=== PATIENT | female | born 1985 | race Caucasian/White ===

== ENCOUNTER 2021-05-16 19:03 | Inpatient (IN) | payer BC ==
[2021-05-16] MEDS ORDERED: NALOXONE HCL 0.4 MG/ML VIAL IM PRN (22:41)
[2021-05-16] MEDS ORDERED: MAG HYDROX/AL HYDROX/SIMETH 30 ML UNIT-DOSE CUP PO PRN (22:41)
[2021-05-16] MEDS ORDERED: ACETAMINOPHEN 325 MG TABLET (FP) PO PRN (22:41)
[2021-05-16] MEDS ORDERED: NALOXONE (NARCAN) HCL 4 MG/0.1 ML SPRAY NS PRN (22:41)
[2021-05-16] MEDS ORDERED: guaiFENesin 200 MG/10 ML 10 ML UNIT-DOSE CUPS PO PRN (22:41)
[2021-05-16] MEDS ORDERED: MAGNESIUM HYDROX 2400MG/30ML ORAL SUSPENSION 30 ML CUP PO PRN (22:41)
[2021-05-16] MEDS ORDERED: ONDANSETRON *ODT* 4 MG TABLET SL PRN (22:41)
[2021-05-16] MEDS ORDERED: MAGNESIUM CITRATE 300 ML BOTTLE PO PRN (22:41)
[2021-05-16] MEDS ORDERED: P-EPHED 60MG/TRIPROLIDI 2.5MG TABLET PO PRN (22:41)
[2021-05-16] MEDS ORDERED: DICYCLOMINE HCL 10 MG CAPSULE PO PRN (22:41)
[2021-05-16] MEDS ORDERED: BISMUTH SUBSALICYLATE 524 MG/30 ML PO PRN (22:41)
[2021-05-16] MEDS ORDERED: MENTHOL/PHENOL 1 EACH UD MM PRN (22:41)
[2021-05-16] MEDS ORDERED: IBUPROFEN 400 MG TABLET (FP) PO PRN (22:41)
[2021-05-17 01:15] VITALS: BMI 30.4
[2021-05-17] MEDS ORDERED: diazePAM 5 MG TABLET PO PRN (08:30)
[2021-05-17] MEDS ORDERED: cloNIDine HCL 0.1 MG TABLET PO PRN (10:07)
[2021-05-17] MEDS ORDERED: methaDONE HCL 10 MG TABLET PO SCH (10:15)
[2021-05-17] MEDS: metFORMIN HCL 500 MG TABLET (FP) PO SCH ×2 (10:30→17:50)
[2021-05-17] MEDS: diazePAM 5 MG TABLET PO SCH ×3 (10:30→22:04)
[2021-05-17] MEDS: PRENATAL VITAMINS W/ FOLIC ACID TABLET (FP) PO SCH (10:33)
[2021-05-17] MEDS ORDERED: methaDONE HCL 10 MG TABLET ONE (10:53)
[2021-05-17] MEDS ORDERED: methaDONE HCL 40 MG DISPERSABLE TABLET ONE (10:54)
[2021-05-17 12:38] LABS: HEMATOCRIT 39.4 % (32.4-45.2); HEMOGLOBIN 13.4 GM/dL (10.7-15.3); MCH 30.4 pg (25.7-33.7); MCHC 33.9 g/dl (32.0-36.0); MEAN CELL VOLUME 89.6 fl (80-96); MEAN PLT VOLUME 9.2 fl (7.5-11.1); PLATELET COUNT 230 10^3/uL (134-434); RDW 12.6 % (11.6-15.6); WHITE BLOOD COUNT 4.4 K/mm3 (4.0-10.0)
[2021-05-17 12:49] LABS: BLOOD UREA NITROGEN 13.3 mg/dL (7-18); CALCIUM 9.3 mg/dL (8.5-10.1)
[2021-05-17 12:52] LABS: CREATININE 0.9 mg/dL (0.55-1.3)
[2021-05-17 12:54] LABS: BILIRUBIN,TOTAL 0.8 mg/dL (0.2-1); TOT PROT 7.9 g/dl (6.4-8.2)
[2021-05-17] MEDS: THIAMINE HCL 100 MG TABLET (FP) PO SCH (22:04)
[2021-05-17] MEDS: MELATONIN 5 MG TABLETS PO SCH (22:05)
[2021-05-18] MEDS ORDERED: methaDONE HCL 40 MG DISPERSABLE TABLET ONE (04:15)
[2021-05-18] MEDS ORDERED: methaDONE HCL 10 MG TABLET ONE (04:15)
[2021-05-18] MEDS: diazePAM 5 MG TABLET PO SCH ×4 (05:50→22:25)
[2021-05-18] MEDS: metFORMIN HCL 500 MG TABLET (FP) PO SCH ×3 (08:00→17:29)
[2021-05-18] MEDS: PRENATAL VITAMINS W/ FOLIC ACID TABLET (FP) PO SCH (10:48)
[2021-05-18] MEDS: MELATONIN 5 MG TABLETS PO SCH (22:25)
[2021-05-18] MEDS: THIAMINE HCL 100 MG TABLET (FP) PO SCH (22:25)
[2021-05-18] MEDS: METHOCARBAMOL 500 MG TABLET PO PRN (22:26)
[2021-05-19] MEDS ORDERED: methaDONE HCL 10 MG TABLET ONE (04:16)
[2021-05-19] MEDS ORDERED: methaDONE HCL 40 MG DISPERSABLE TABLET ONE (04:16)
[2021-05-19] MEDS: diazePAM 5 MG TABLET PO SCH ×3 (06:02→22:16)
[2021-05-19] MEDS: metFORMIN HCL 500 MG TABLET (FP) PO SCH ×3 (08:19→17:19)
[2021-05-19] MEDS: PRENATAL VITAMINS W/ FOLIC ACID TABLET (FP) PO SCH (10:05)
[2021-05-19] MEDS: METHOCARBAMOL 500 MG TABLET PO PRN ×2 (10:05→22:18)
[2021-05-19] MEDS: THIAMINE HCL 100 MG TABLET (FP) PO SCH (22:15)
[2021-05-19] MEDS: MELATONIN 5 MG TABLETS PO SCH (22:15)
[2021-05-19] MEDS: ACETAMINOPHEN 325 MG TABLET (FP) PO PRN (22:16)
[2021-05-20] MEDS ORDERED: methaDONE HCL 10 MG TABLET ONE (04:19)
[2021-05-20] MEDS ORDERED: methaDONE HCL 40 MG DISPERSABLE TABLET ONE (04:20)
[2021-05-20] MEDS: diazePAM 5 MG TABLET PO SCH ×2 (05:56→17:26)
[2021-05-20] MEDS: metFORMIN HCL 500 MG TABLET (FP) PO SCH ×3 (08:26→17:26)
[2021-05-20] MEDS: PRENATAL VITAMINS W/ FOLIC ACID TABLET (FP) PO SCH (10:16)
[2021-05-20] MEDS: METHOCARBAMOL 500 MG TABLET PO PRN ×2 (10:17→22:09)
[2021-05-20] MEDS: THIAMINE HCL 100 MG TABLET (FP) PO SCH (22:09)
[2021-05-20] MEDS: ACETAMINOPHEN 325 MG TABLET (FP) PO PRN (22:09)
[2021-05-20] MEDS: MELATONIN 5 MG TABLETS PO SCH (22:11)
[2021-05-21] MEDS ORDERED: methaDONE HCL 10 MG TABLET ONE (05:28)
[2021-05-21] MEDS ORDERED: methaDONE HCL 40 MG DISPERSABLE TABLET ONE (05:28)
[2021-05-21] MEDS ORDERED: diazePAM 5 MG TABLET PO ONE (06:00)
[2021-05-21 06:56] VITALS: BP 126/72; PULSE 59; TEMP 97.3
[2021-05-21] MEDS: metFORMIN HCL 500 MG TABLET (FP) PO SCH (08:37)
== END 2021-05-21 09:31 | disposition home or self-care (01) | DRG 773 ==
LOC: YASAS 19:03 → UNDOADMIN 23:51 → Y3N 23:51 → Y6N 05-17 09:01
PROVIDERS: ADMIT Allergy & Immunology; ATTEND Allergy & Immunology
PROC: HZ2ZZZZ Detoxification Services for Substance Abuse Treatment (ICD-10-PCS; principal; 2021-05-17)
DX: F13.230 Sedative, hypnotic or anxiolytic dependence with withdrawal, uncomplicated (principal); F11.20 Opioid dependence, uncomplicated; F19.24 Other psychoactive substance dependence with psychoactive substance-induced mood disorder; G47.00 Insomnia, unspecified; K21.9 Gastro-esophageal reflux disease without esophagitis; Z87.891 Personal history of nicotine dependence; Z86.2 Personal history of diseases of the blood and blood-forming organs and certain disorders involving the immune mechanism
CPT/HCPCS: 36415; 80053; 82962; 85027; 86780; 93005; 93010; C9803; U0003; U0005